=== PATIENT | female | born 1960 | race Caucasian/White ===

== ENCOUNTER 2016-10-22 08:33 | Day surgery (SDC) | payer MEDICAID ==
[2016-10-22] MEDS ORDERED: LIDOCAINE 2% MDV (20MG/ML) 20ML VIAL IV ONE (09:59)
[2016-10-22] MEDS ORDERED: PROPOFOL 10 MG/ML VIAL IV ONE (09:59)
[2016-10-22] MEDS ORDERED: MIDAZOLAM HCL 2MG/2ML VIAL IV ONE (09:59)
--- NOTE | 2016-10-23 12:51 | Operative Note ---
DATE OF SURGERY: 10/22/2016 OPERATION: COLONOSCOPY with cold snare polypectomy x4 and cold forceps polypectomy x2 and hemoclip application to cecal polypectomy site x2. PREOPERATIVE DIAGNOSIS: Screening with a family history of 2 second-degree relatives with colon cancer. POSTOPERATIVE DIAGNOSES: 1. Colon polyps. 2. Hemorrhoids. 3. Hypertrophied anal papilla. PROCEDURE: After informed consent was obtained from the patient, she was placed in the left lateral decubitus position in the endoscopy suite, sedated and monitored by the department of anesthesia. Digital rectal exam was unremarkable. A well-lubricated [id number] colonoscope was inserted into the rectum and advanced to the cecum. Preparation quality was good. In the cecum, there was a 4-5 mm sessile polyp removed with a cold snare. Minimal bleeding was noted at the site. There was a 1.2 cm sessile polyp which was removed in piecemeal fashion with a cold snare. Two hemoclips were applied to the site for wound closure purposes. The remainder of the cecum was unremarkable. The ascending colon was also unremarkable. The transverse colon revealed 2 polyps approximately 5-6 mm in diameter each removed with a cold snare with minimal bleeding noted. The remainder of the transverse colon, descending colon, and sigmoid colon were unrevealing. J-turn views of the anorectum revealed hemorrhoids and hypertrophied anal papilla and a diminutive polyp. The polyp was removed with a cold forceps in piecemeal fashion. The endoscope was straightened, the rectal ampulla deflated, and the endoscope was removed. RECOMMENDATIONS: The patient should resume her medications and diet. She will require repeat exam in 1-3 years pending tissue histology. As always, thank you for allowing me to participate in the healthcare of your patients. CC: Dr. Nadir RUBALCAVA
== END 2016-10-22 10:26 | disposition home or self-care (01) ==
LOC: HOP 08:33
PROVIDERS: ATTEND Internal Medicine Gastroenterology
DX: Z12.11 Encounter for screening for malignant neoplasm of colon (principal); D12.0 Benign neoplasm of cecum; D12.3 Benign neoplasm of transverse colon; K62.1 Rectal polyp; K62.89 Other specified diseases of anus and rectum

== ENCOUNTER 2018-07-10 11:49 | Emergency (ER) | payer MEDICAID ==
--- NOTE | 2018-07-10 11:56 | Emergency Department Record ---
History of Present Illness - General Stated complaint: l foot ankle injury Time Seen by Provider: 07/10/18 11:50 Source: Patient Mode of Arrival: Ambulatory Limitations: No limitations - History of Present Illness Initial comments: 58 yo female presents with left foot pain. She states last weekend she injured it when she mis-stepped on one step. The pain gradually worsened over the course of the last week. She has been ambulating and working with increasing pain. No swelling, redness or warmth. The mid foot is painful. Otherwise there is no other pain of the hip, knee, ankle, or achilles. No history or left foot prior disease. MD Complaint: Joint pain, Joint swelling Location: Left History of Same: Yes -: Yes Arthralgia Radiation: Distal Quality: Aching Consistency: Constant Improves with: Immobilization Worsens with: Palpation, Weight bearing Associated Symptoms: Denies other symptoms - Related Data Home Medications Medication Instructions Recorded Confirmed Last Taken Alprazolam [Xanax] 1 mg PO BID PRN 07/10/18 07/10/18 1 Day Ago ~07/09/18 Allergies Allergy/AdvReac Type Severity Reaction Status Date / Time No Known Drug Allergies Allergy Verified 07/10/18 11:56 Review of Systems Constitutional: Denies: Chills, Fever, Malaise, Weakness Eyes: Denies: Eye discharge ENT: Denies: Congestion, Throat pain Respiratory: Denies: Cough Cardiovascular: Denies: Chest pain, Palpitations Endocrine: Denies: Fatigue Gastrointestinal: Denies: Abdominal pain, Diarrhea, Nausea, Vomiting Genitourinary: Denies: Dysuria Musculoskeletal: Reports: As per HPI, Arthralgia Skin: Denies: Bruising, Change in color, Rash Neurological: Denies: Numbness, Tingling, Weakness Psychiatric: Denies: Anxiety Hematological/Lymphatic: Denies: Easy bleeding, Easy bruising Past Medical History - SOCIAL HISTORY Smoking Status: Former smoker - RESPIRATORY Hx Respiratory Disorders: Yes Hx Asthma: Yes (well controlled with inh) - CARDIOVASCULAR Hx Cardio Disorders: No - NEURO Hx Neuro Disorders: No - GI Hx GI Disorders: No - Hx Genitourinary Disorders: No - ENDOCRINE Hx Endocrine Disorders: No - MUSCULOSKELETAL Hx Musculoskeletal Disorders: No - PSYCH Hx Psych Problems: Yes Hx Anxiety: Yes - HEMATOLOGY/ONCOLOGY Hx Hematology/Oncology Disorders: No Family Medical History Hx Cancer: Brother/Sister, Grandparents *Cancer Comment: brother-lymphoma, Maternal Grandfather-colon, Maternal Grandmother-colon Physical Exam - General General Appearance: Alert, Oriented x3, Cooperative, No acute distress Limitations: No limitations - Head Head exam: Atraumatic, Normal inspection - Eye Eye exam: Normal appearance - ENT ENT exam: Normal exam Ear exam: Normal external inspection Nasal Exam: Normal inspection Mouth exam: Normal external inspection - Neck Neck exam: Normal inspection - Cardiovascular Peripheral Pulses: 2+: Dorsalis Pedis (L) - Extremities Extremities exam: Normal inspection, Full ROM, Normal capillary refill, Tenderness. negative: Calf tenderness, Joint swelling, Pedal edema Image of Feet: 1 - normal inspection, mid foot tenderness, no swelling, redness or warmth. No achilles tenderness, no ankle tenderness, Full ROM intact - Neurological Neurological exam: Alert, Oriented X3 - Psychiatric Psychiatric exam: Normal affect, Normal mood - Skin Skin exam: Dry, Intact, Normal color, Warm Course - Reevaluation(s) Reevaluation #1: The XR was reviewed. No definite fracture or dislocation The patient was placed in a [employer] and given crutches We discussed follow up importance if the pain continues 07/10/18 12:13 Disposition Disposition: Discharge Clinical Impression: Sprain of foot, left Qualifiers: Encounter type: initial encounter Qualified Code(s): S93.602A - Unspecified sprain of left foot, initial encounter Disposition: Home, Self-Care Condition: (1) Good Instructions: Foot Sprain (ED) Additional Instructions: Call your doctor for follow up this week if the pain is not improving Use the boot and crutches to minimize any walking or weight bearing Elevate to minimize swelling. If your pain is not improving to you need additionally evaluation or tests to look for other injuries not visible on X ray. Forms: Patient Portal Access Time of Disposition: 12:14 Quality - Quality Measures Quality Measures: N/A - Blood Pressure Screening Does Patient Have Any of the Following: No Blood Pressure Classification: Hypertensive Reading Systolic Measurement: 174 Diastolic Measurement: 107 Screening for High Blood Pressure: < Pre-Hypertensive BP, F/U Documented > [ [id number]] Pre-Hypertensive Follow-up Interventions: Referral to alternative/primary care provider.
--- NOTE | 2018-07-12 09:05 | RADIOLOGY REPORT ---
EXAM: LEFT FOOT HISTORY: PROGRESSIVE PLANTAR FOOT PAIN STATUS POST TWISTING INJURY ONE WEEK AGO. TECHNIQUE: Three views of the left foot were obtained. Comparison: None. FINDINGS: No acute fracture is seen. No evidence of dislocation. 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 Calcaneal, plantar and Achilles enthesophytes/heel spurs. Possible os peroneum, best seen on lateral view. IMPRESSION: 1. NO ACUTE OSSEOUS FINDINGS. 2. CHRONIC AND DEGENERATIVE FINDINGS OF THE FOOT, ABOVE. JOB NUMBER: [id number] [facility]
== END 2018-07-10 13:05 | disposition home or self-care (01) ==
LOC: ER 11:49
DX: S93.602A Unspecified sprain of left foot, initial encounter (principal); X50.0XXA Overexertion from strenuous movement or load, initial encounter; Z87.891 Personal history of nicotine dependence
CPT/HCPCS: 99283